=== PATIENT | male | born 1950 | race Caucasian/White ===

== ENCOUNTER → 2016-12-04 | Outpatient (CLI) | payer MEDICARE, BC ==
[~2016-12-04] VITALS: Ht 180.3 cm; Wt 115.9 kg
[~2016-12-04] MED LIST: ASPIRIN E.C. 8181 MG PO; COMPLETE SENIOR1 TA1 PO; HYTRIN 5MG C5 MG/CAP PO
[2016-12-04 09:27] VITALS: BP 152/81; PULSE 75
[2016-12-04 10:10] VITALS: BP 125/64; PULSE 65
[2016-12-04 10:15] VITALS: BP 138/76; PULSE 66
[2016-12-04 10:20] VITALS: BP 138/76; PULSE 66
[2016-12-04 10:40] VITALS: BP 130/74; PULSE 71
[2016-12-04 11:00] VITALS: BP 121/70; PULSE 69
== END ==
LOC: COL.RAD 08:54
DX: K81.9 Cholecystitis, unspecified (principal)
CPT/HCPCS: 26396

== ENCOUNTER → 2017-07-15 | Outpatient (CLI) | payer MEDICARE, BC | LOC: COL.RAD 08:44 | DX: R74.0 Nonspecific elevation of levels of transaminase and lactic acid dehydrogenase [LDH] (principal); K76.89 Other specified diseases of liver | CPT/HCPCS: A9585 ==

== ENCOUNTER 2017-07-23 13:12 | Day surgery (SDC) | payer MEDICARE, BC ==
[~2017-07-23] VITALS: Ht 175.3 cm; Wt 122.4 kg
[2017-07-23 13:28] VITALS: BP 141/79; PULSE 70; TEMP 97.2
[2017-07-23 15:00] VITALS: BP 119/51; PULSE 69; TEMP 97.9
[2017-07-23 15:15] VITALS: BP 128/62; PULSE 73; TEMP 98
[2017-07-23 15:30] VITALS: BP 128/62; PULSE 73; TEMP 98
[2017-07-23 15:45] VITALS: BP 124/61; PULSE 65; TEMP 97.8
[2017-07-23 16:15] VITALS: BP 128/65; PULSE 63; TEMP 98
== END 2017-07-23 19:21 | disposition home or self-care (01) ==
LOC: SDCO 13:12 → SURG 15:04 → SDCO 19:21
DX: C23 Malignant neoplasm of gallbladder (principal); R94.5 Abnormal results of liver function studies; R93.3 Abnormal findings on diagnostic imaging of other parts of digestive tract; R93.2 Abnormal findings on diagnostic imaging of liver and biliary tract; I10 Essential (primary) hypertension; Z90.49 Acquired absence of other specified parts of digestive tract; Z85.05 Personal history of malignant neoplasm of liver
CPT/HCPCS: OP; C1769; J2704; Q9967

== ENCOUNTER → 2017-12-09 | Outpatient (CLI) | payer MEDICARE, BC | LOC: COL.RAD 14:00 | DX: Z13.83 Encounter for screening for respiratory disorder NEC (principal); C23 Malignant neoplasm of gallbladder | CPT/HCPCS: Q9967 ==